=== PATIENT | female | born 1940 | race Caucasian/White ===

== ENCOUNTER 2017-03-06 15:04 | Emergency (ER) | payer MEDICARE, OTHER ==
[2017-03-06] MEDS ORDERED: Zofran 4 MG/2 ML VIAL IV ONE (15:26)
[2017-03-06] MEDS ORDERED: PROTONIX 40 MG IV IV ONE ×2 (15:26→15:35)
[2017-03-06] MEDS ORDERED: Sodium Chloride 0.9% 1000 ML 1,000 ML IV SCH (15:30)
[2017-03-06] MEDS ORDERED: Sodium Chloride 0.9% 1000 ML 1,000 ML ONE (15:35)
[2017-03-06] MEDS ORDERED: Zofran 4 MG/2 ML VIAL ONE (15:35)
[2017-03-06 15:57] LABS: BASOPHIL % 0.4 % (0.0-0.4); Eosinophil % 1.5 % (0.00-5.0); Granulocytes % 79.2 % (36.0-66.0); Lymphocytes % 12.2 % (24.0-44.0); Mean Cell Volume 84.4 fl (78-100); Mean Corpuscular Hemoglobin 28.9 pg (26-32); Mean Platelet Volume 11.9 fl (6-9.5); Monocytes % 6.7 % (0.0-12.0); Platelet Count 199 K/mm3 (150-450); Red Blood Count 5.26 M/mm3 (4.1-5.4); Red Cell Distribution Width 13.3 % (11.5-14.0); White Blood Count 7.3 K/mm3 (4.0-10.5)
[2017-03-06 16:00] LABS: ANION GAP 12.9 MEQ/L (5-15); BLOOD UREA NITROGEN 22 mg/dL (9-20); CHLORIDE 105 mEq/L (98-107); Carbon Dioxide 26.6 mEq/L (21-32); Glucose 144 MG/DL (70-110); LIPASE 115 U/L (73-393); Potassium 3.9 mEq/L (3.5-5.1); SODIUM 141 mEq/L (136-145)
[2017-03-06 18:01] VITALS: BP 136/63; PULSE 88; O2SAT 96
--- NOTE | 2017-03-06 18:22 | ERPHSYRPT ---
- History of Present Illness Time Seen by Provider: 03/06/17 15:15 Source: patient Exam Limitations: clinical condition Patient Subjective Stated Complaint: PT BROUGHT TO ED PER EMS FROM HOME-REPORTS PT HAD SUDDEN ONSET OF VOMITING X 1 AT 1330-DENIES PAIN-REPORTS [place] DENIES DIARRHEA Triage Nursing Assessment: PT PALE WARM ET [id number] EASY ET NONLABORED- ABD NONTENDER TO PALP Physician History: PATIENT WITH HISTORY OF TYPE 2 DIABETES COMPLAINS OF FREQUENT EPISODES OF EMESIS X 2. DENIES FEVER, ABDOMINAL PAIN OR DIARRHEA. Timing/Duration: today Severity: mild Modifying Factors: Improves With: nothing Associated Symptoms: denies symptoms Allergies/Adverse Reactions: No Known Drug Allergies Allergy (Verified 03/06/17 15:08) Home Medications: Aspirin EC 81 mg [Ecotrin 81 mg] 81 mg PO DAILY 03/15/13 [History] Calcium Carbonate [Calcium] 500 mg PO BID 03/15/13 [History] Clopidogrel Bisulfate 75 mg [PLAVIX 75 MG Tablet] 75 mg PO DAILY 03/15/13 [History] Ergocalciferol (Vitamin D2) [Vitamin D] 50,000 unit PO 2XW 03/15/13 [History] Insulin Detemir [Levemir] 70 unit SQ BID 03/15/13 [History] Liraglutide [Victoza 2-Lino] 1.8 mg SQ DAILY 03/15/13 [History] [place]-3 Fatty Acids/Fish Oil [Fish Oil 1,000 mg Capsule] 1,000 mg PO DAILY 03/15/13 [History] Omeprazole Magnesium [Prilosec Otc] 20 mg PO DAILY 03/15/13 [History] Quinapril HCl [Accupril] 40 mg PO DAILY 03/15/13 [History] Hx Tetanus, Diphtheria Vaccination/Date Given: No Hx Influenza Vaccination/Date Given: Yes Hx Pneumococcal Vaccination/Date Given: Yes Immunizations Up to Date: Yes - Review of Systems Constitutional: No Fever, No Chills Eyes: No Symptoms Ears, Nose, & Throat: No Symptoms Respiratory: No Cough, No Dyspnea Cardiac: No Chest Pain, No Edema, No Syncope Abdominal/Gastrointestinal: Nausea, Vomiting, No Abdominal Pain, No Diarrhea Genitourinary Symptoms: No Symptoms, No Dysuria Musculoskeletal: No Symptoms, No Back Pain, No Neck Pain Skin: No Symptoms, No Rash Neurological: No Dizziness, No Focal Weakness, No Sensory Changes Psychological: No Symptoms Endocrine: No Symptoms All Other Systems: Reviewed and Negative - Past Medical History Pertinent Past Medical History: Yes Neurological History: TIA ENT History: Cataracts Cardiac History: Hypertension Endocrine Medical History: Diabetes Type II Musculoskeletal History: Arthritis GI Medical History: Colorectal Cancer, Polyps History: No Pertinent History Psycho-Social History: No Pertinent History Female Reproductive Disorders: No Pertinent History - Past Surgical History Past Surgical History: Yes Gastrointestinal: Colon Resection - Social History Smoking Status: Never smoker Exposure to second hand smoke: Yes Drug Use: none Patient Lives Alone: Yes - Female History Hx Now: No - Nursing Vital Signs Nursing Vital Signs: Initial Vital Signs Temperature 98.7 F Temperature Source Oral Pulse Rate 88 Respiratory Rate 20 Blood Pressure [Left Arm] 136/63 Pain Intensity 0 - Physical Exam General Appearance: no apparent distress, alert Eye Exam: PERRL/EOMI, eyes nml inspection Ears, Nose, Throat Exam: normal ENT inspection, TMs normal, pharynx normal, moist mucous membranes Neck Exam: normal inspection, non-tender, supple, full range of motion Respiratory Exam: normal breath sounds, lungs clear, No respiratory distress Cardiovascular Exam: regular rate/rhythm, normal heart sounds, normal peripheral pulses Gastrointestinal/Abdomen Exam: soft, normal bowel sounds, No tenderness, No mass Back Exam: normal inspection, normal range of motion, No CVA tenderness, No vertebral tenderness Extremity Exam: normal inspection, normal range of motion, pelvis stable Neurologic Exam: alert, oriented x 3, cooperative, normal mood/affect, nml cerebellar function, nml station & gait, sensation nml, No motor deficits Skin Exam: normal color, warm, dry, No rash Lymphatic Exam: No adenopathy SpO2 Interpretation: normal SpO2: 96 Oxygen Delivery: Room Air Ordered Tests: Active Orders 24 hr Category Date Time Status EKG-ER Only STAT Care 03/06/17 15:26 Active IV Insertion STAT Care 03/06/17 15:26 Active AMYLASE Stat Lab 03/06/17 15:10 Completed BMP Stat Lab 03/06/17 15:10 Completed CBC W DIFF Stat Lab 03/06/17 15:10 Completed LIPASE Stat Lab 03/06/17 15:10 Completed Medication Summary Generic Name Dose Route Start Last Admin Trade Name Freq PRN Reason Stop Dose Admin Sodium Chloride 1,000 mls @ 200 mls/hr 03/06/17 15:30 03/06/17 15:40 Sodium Chloride 0.9% 1000 Ml IV 04/05/17 15:29 200 mls/hr .Q5H [place] Administration Discontinued Medications Generic Name Dose Route Start Last Admin Trade Name Freq PRN Reason Stop Dose Admin Ondansetron HCl 4 mg 03/06/17 15:26 03/06/17 15:40 Zofran 4 Mg/2 Ml Vial IV 03/06/17 15:27 4 mg STAT ONE Administration Ondansetron HCl Confirm 03/06/17 15:35 Zofran 4 Mg/2 Ml Vial Administered 03/06/17 15:36 Dose 4 mg .ROUTE .STK-MED ONE Pantoprazole Sodium 40 mg 03/06/17 15:26 03/06/17 15:40 Protonix 40 Mg Iv IV 03/06/17 15:27 40 mg STAT ONE Administration Pantoprazole Sodium Confirm 03/06/17 15:35 Protonix 40 Mg Iv Administered 03/06/17 15:36 Dose 40 mg IV .STK-MED ONE Lab/Rad Data: Laboratory Result Diagrams 03/06/17 15:10 03/06/17 15:10 Laboratory Results 03/06/17 03/06/17 Range/Units 15:10 15:10 WBC 7.3 (4.0-10.5) K/mm3 RBC 5.26 (4.1-5.4) M/mm3 Hgb 15.2 (12.0-16.0) gm/dl Hct 44.4 (35-47) % MCV 84.4 (78-100) fl MCH 28.9 (26-32) pg MCHC 34.2 (32-36) g/dl RDW 13.3 (11.5-14.0) % Plt Count 199 (150-450) K/mm3 MPV 11.9 H (6-9.5) fl Gran % 79.2 H (36.0-66.0) % Lymphocytes % 12.2 L (24.0-44.0) % Monocytes % 6.7 (0.0-12.0) % Eosinophils % 1.5 (0.00-5.0) % Basophils % 0.4 (0.0-0.4) % Basophils # 0.03 (0-0.4) Sodium 141 (136-145) mEq/L Potassium 3.9 (3.5-5.1) mEq/L Chloride 105 (98-107) mEq/L Carbon Dioxide 26.6 (21-32) mEq/L Anion Gap 12.9 (5-15) MEQ/L BUN 22 H (9-20) mg/dL Creatinine 0.95 (0.55-1.30) mg/dl Estimated GFR > 60 ML/MIN Glucose 144 H (70-110) MG/DL Calcium 9.9 (8.5-10.1) mg/dL Amylase 78 (25-115) U/L Lipase 115 (73-393) U/L - Progress Counseled pt/family regarding: diagnosis, need for follow-up - Departure Time of Disposition: 18:35 Departure Disposition: Home Clinical Impression: ACUTE EMESIS Condition: Stable Critical Care Time: No Referrals: ELVIS SALINAS MD [Primary Care Provider] - Additional Instructions: ZOFRAN 4MG EVERY 4-6 HOURS NEEDED FOR NAUSEA OR EMESIS. CONSULT YOUR FAMILY PHYSICIAN FOR EVALUATION IN 1 WEEK. Prescriptions: Ondansetron [Zofran Odt] 4 mg PO Q4-6HPRN PRN #6 tab.rapdis PRN Reason: Nausea
== END 2017-03-06 18:47 | disposition home or self-care (01) ==
LOC: ED 15:04
DX: R11.10 Vomiting, unspecified (principal); E11.9 Type 2 diabetes mellitus without complications; R11.2 Nausea with vomiting, unspecified
CPT/HCPCS: 36415; 80048; 82150; 83690; 85025; 93005; 96360; 96361; 96374; 96375; 99284; J2405

== ENCOUNTER 2017-08-25 10:13 | Emergency (ER) | payer MEDICARE, OTHER ==
[2017-08-25] MEDS ORDERED: NORCO 5/325 MG PO ONE (10:56)
--- NOTE | 2017-08-25 10:59 | ERPHSYRPT ---
- History of Present Illness Time Seen by Provider: 08/25/17 10:53 Source: patient Patient Subjective Stated Complaint: right shoulder pain since . got pneumonia shot sunday. denies any injury Triage Nursing Assessment: right shoulder tender to touch. has small red area where she got her pneumonia shot right upper arm. unable to lift right arm. good radial pulse and good cap refill. arm warm, normal color. Physician History: CC: right shoulder pain Hx: 77 y/o patient with right shoulder pain for a few days. Worse when she tries to move it. No fall or injury. No fever or chills. No hx of gout. Drove herself here. Takes plavix. She has insulin pump. Pain is severe. Extremities Pain Location: shoulder: right Allergies/Adverse Reactions: aspirin Adverse Reaction (Verified 08/25/17 10:53) Home Medications: Calcium Carbonate [Calcium] 500 mg PO BID 03/15/13 [History] Clopidogrel Bisulfate 75 mg [PLAVIX 75 MG Tablet] 75 mg PO DAILY 03/15/13 [History] Ergocalciferol (Vitamin D2) [Vitamin D] 50,000 unit PO 2XW 03/15/13 [History] Insulin Detemir [Levemir] 70 unit SQ BID 03/15/13 [History] Liraglutide [Victoza 2-Lino] 1.8 mg SQ DAILY 03/15/13 [History] [place]-3 Fatty Acids/Fish Oil [Fish Oil 1,000 mg Capsule] 1,000 mg PO DAILY 03/15/13 [History] Quinapril HCl [Accupril] 40 mg PO DAILY 03/15/13 [History] Hx Tetanus, Diphtheria Vaccination/Date Given: No Hx Influenza Vaccination/Date Given: Yes Hx Pneumococcal Vaccination/Date Given: Yes - Review of Systems Constitutional: No Fever, No Chills Respiratory: No Cough, No Dyspnea Cardiac: No Chest Pain Abdominal/Gastrointestinal: No Abdominal Pain, No Nausea, No Vomiting Musculoskeletal: Joint Pain (right shoulder), No Back Pain, No Neck Pain, No Injury Skin: No Rash Neurological: No Focal Weakness, No Parasthesia All Other Systems: Reviewed and Negative - Past Medical History Pertinent Past Medical History: Yes Neurological History: TIA ENT History: Cataracts Cardiac History: Hypertension Endocrine Medical History: Diabetes Type II Musculoskeletal History: Arthritis GI Medical History: Colorectal Cancer, Polyps History: No Pertinent History Psycho-Social History: No Pertinent History Female Reproductive Disorders: No Pertinent History - Past Surgical History Past Surgical History: Yes Gastrointestinal: Colon Resection - Social History Smoking Status: Never smoker Exposure to second hand smoke: No Drug Use: none Patient Lives Alone: Yes - Female History Hx Now: No - Nursing Vital Signs Nursing Vital Signs: Initial Vital Signs Temperature 98 F 08/25/17 10:47 Pulse Rate 87 08/25/17 10:47 Respiratory Rate 16 08/25/17 10:47 Blood Pressure 152/61 08/25/17 10:47 O2 Sat by Pulse Oximetry 97 08/25/17 10:47 Pain Scale Pain Intensity 6 - Physical Exam General Appearance: alert Eyes, Ears, Nose, Throat Exam: normal ENT inspection, moist mucous membranes Neck Exam: non-tender, supple Cardiovascular/Respiratory Exam: normal breath sounds, regular rate/rhythm Abdominal Exam: non-tender, soft Back Exam: normal inspection, No vertebral tenderness Shoulder Exam: normal inspection, limited ROM (severe tenderness, no redness or warmth) Elbow/Forearm Exam: normal inspection, non-tender, no evidence of injury Wrist Exam: normal inspection, non-tender, no evidence of injury Hand Exam: normal inspection, non-tender, no evidence of injury Mental Status Exam: alert, oriented x 3, cooperative Skin Exam: warm, dry, No rash SpO2 Interpretation: normal SpO2: 97 Oxygen Delivery: Room Air - Course Nursing assessment & vital signs reviewed: Yes - Radiology Exams right shoulder X-ray Interpretation: Interpreted by me (JACKIE), No Fracture, No Subluxation Ordered Tests: Active Orders 24 hr Category Date Time Status SHOULDER Stat Exams 08/25/17 10:56 Taken BMP Stat Lab 08/25/17 11:15 Completed CBC W DIFF Stat Lab 08/25/17 11:15 Completed Erythrocyte Sedimentation Rate Stat Lab 08/25/17 11:15 Completed Uric Acid Stat Lab 08/25/17 11:15 Completed Medication Summary Discontinued Medications Generic Name Dose Route Start Last Admin Trade Name Freq PRN Reason Stop Dose Admin Hydrocodone Bitart/Acetaminophen 1 tab 08/25/17 10:56 08/25/17 11:37 [place] 5/325 Mg PO 08/25/17 10:57 1 tab STAT ONE Administration Hydrocodone Bitart/Acetaminophen Confirm 08/25/17 11:00 [place] 5/325 Mg Administered 08/25/17 11:01 Dose 1 tab .ROUTE .STK-MED ONE Lab/Rad Data: Laboratory Result Diagrams 08/25/17 11:15 08/25/17 11:15 Laboratory Results 08/25/17 08/25/17 Range/Units 11:15 11:15 WBC 13.5 H (4.0-10.5) K/mm3 RBC 4.90 (4.1-5.4) M/mm3 Hgb 14.5 (12.0-16.0) gm/dl Hct 41.7 (35-47) % MCV 85.1 (78-100) fl MCH 29.6 (26-32) pg MCHC 34.8 (32-36) g/dl RDW 12.8 (11.5-14.0) % Plt Count 212 (150-450) K/mm3 MPV 11.1 H (6-9.5) fl Gran % 81.7 H (36.0-66.0) % Lymphocytes % 9.1 L (24.0-44.0) % Monocytes % 8.7 (0.0-12.0) % Eosinophils % 0.4 (0.00-5.0) % Basophils % 0.1 (0.0-0.4) % Basophils # 0.02 (0-0.4) ESR 18 (0-20) mm/hr Sodium 140 (136-145) mEq/L Potassium 3.8 (3.5-5.1) mEq/L Chloride 102 (98-107) mEq/L Carbon Dioxide 26.3 (21-32) mEq/L Anion Gap 15.4 H (5-15) MEQ/L BUN 17 (9-20) mg/dL Creatinine 0.98 (0.55-1.30) mg/dl Estimated GFR 59 ML/MIN Glucose 191 H (70-110) MG/DL Uric Acid 5.4 (2.6-6.0) mg/dL Calcium 9.5 (8.5-10.1) mg/dL - Progress Progress Note: 08/25/17 12:01 No fever. She has some swelling of the right shoulder. ESR and uric ok. She had trouble filling her insulin pump this AM as she is not able to use the right shoulder. The pain in the joint started a few days ago. She has family in [place] and another disabled son. She has never had HHC. She may need steroid injection in shoulder. [place] given here after she found a ride for home. Advised partial sling, frequent ROM exercises as she already is at risk for frozen shoulder, norco, watch sugar. She was advised no driving and she will need some assistance for care at home and close follow up. 08/25/17 12:06 Discharge planning consulted in attempt to arrange help at home. Counseled pt/family regarding: lab results, diagnosis, need for follow-up, rad results - Departure Time of Disposition: 12:03 Departure Disposition: Home Clinical Impression: Arthritis of right shoulder region Condition: Stable Critical Care Time: No Referrals: ELVIS SALINAS MD [Primary Care Provider] - Instructions: Shoulder Pain, Use a Sling Additional Instructions: Sling when needed. Frequent range of motion exercises for shoulder. Rx norco for pain- no driving. Watch sugar. You should follow up with Dr Salinas Sunday. Return for fever, redness or concerns. Prescriptions: Hydrocodone Bit/Acetaminophen [[place] 5-325 Tablet] 1 each PO Q6H PRN PRN #15 tablet PRN Reason: Pain
[2017-08-25] MEDS ORDERED: NORCO 5/325 MG ONE (11:00)
[2017-08-25 11:21] LABS: BASOPHIL % 0.1 % (0.0-0.4); Eosinophil % 0.4 % (0.00-5.0); Granulocytes % 81.7 % (36.0-66.0); Lymphocytes % 9.1 % (24.0-44.0); Mean Cell Volume 85.1 fl (78-100); Mean Corpuscular Hemoglobin 29.6 pg (26-32); Mean Platelet Volume 11.1 fl (6-9.5); Monocytes % 8.7 % (0.0-12.0); Platelet Count 212 K/mm3 (150-450); Red Cell Distribution Width 12.8 % (11.5-14.0); White Blood Count 13.5 K/mm3 (4.0-10.5)
[2017-08-25 11:37] LABS: Erythrocyte Sedimentation Rate 18 mm/hr (0-20)
[2017-08-25 11:39] LABS: ANION GAP 15.4 MEQ/L (5-15); Carbon Dioxide 26.3 mEq/L (21-32); Potassium 3.8 mEq/L (3.5-5.1)
[2017-08-25 13:52] VITALS: BP 143/77; PULSE 70; O2SAT 96
--- NOTE | 2017-08-25 19:16 | XRAY ---
Indication: Throbbing pain. No known injury. Comparison: None 3 views of the right shoulder demonstrates mild osteopenia, moderate AC degenerative arthropathy, multilevel spinal degenerative changes, and tiny ossification adjacent to the humeral head either degenerative versus old injury. No other bony, articular, or soft tissue abnormalities.
== END 2017-08-25 13:15 | disposition home or self-care (01) ==
LOC: ED 10:13
DX: M13.811 Other specified arthritis, right shoulder (principal); M25.511 Pain in right shoulder; Z79.4 Long term (current) use of insulin; Z96.41 Presence of insulin pump (external) (internal); Z79.899 Other long term (current) drug therapy; I10 Essential (primary) hypertension; E11.9 Type 2 diabetes mellitus without complications
CPT/HCPCS: 36415; 73030; 80048; 84550; 85025; 85652; 99283; A9270-GY

== ENCOUNTER 2020-08-23 09:00 | Day surgery (SDC) | payer MEDICARE, OTHER ==
--- NOTE | 2020-08-23 08:04 | HP ---
DATE OF SURGERY: 08/23/2020 HISTORY OF PRESENT ILLNESS: The patient is a 80 year old with some bright red rectal bleeding. The appeals examiner felt it was related to hemorrhoids. She had a colonoscopy during the past year per gastroenterology. She had colon cancer resection back in 2004. PAST MEDICAL HISTORY: Coronary artery disease. 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 Hypertension. Hyperlipidemia. Diabetes. 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 PAST SURGICAL HISTORY: Stents in the past. TAVR in the past. Colonoscopy. MEDICATIONS: Rybelsus, Trulicity, atorvastatin for hyperlipidemia, quinapril, Plavix, fenofibrate, esomeprazole, vitamin D2, metoprolol, aspirin, NovoLog, NitroStat PRN. ALLERGIES: SHE SAID SENSITIVE TO ASPIRIN ALTHOUGH SHE IS ACTUALLY TAKING ASPIRIN. ADHESIVE TAPE. FAMILY HISTORY: Diabetes, heart disease. SOCIAL HISTORY: She denies smoking. REVIEW OF SYSTEMS: Fourteen systems reviewed pertinent for as noted above. She received cardiac clearance by Dr. Hollins. No chest pain or palpitations currently. PHYSICAL EXAMINATION: GENERAL: No acute distress. HEENT: Sclerae nonicteric. NECK: No JVD. CHEST: Equal excursion, nonlabored breathing. CVS: Regular rate and rhythm. ABDOMEN: Soft. No peritoneal signs. EXTREMITIES: No significant edema. NEURO: Alert, oriented, moving extremities symmetrically. No gross motor deficits noted. RECTAL: She does have some internal and external hemorrhoids. PSYCH: Appropriate mood and affect. IMPRESSION: She has some rectal bleeding. Drapery Rod Assembler, Dr. Godinez, questioned whether this was related to some hemorrhoid issues. She was discussed the options regarding to hemorrhoids. As she had a colonoscopy this past year she does not automatically need another colonoscopy. She was discussed options of consideration of excisional hemorrhoidectomy versus trial of hemorrhoid banding. After a long discussion of risks and benefits the patient prefers trial of internal hemorhoidal banding. General risk of bleeding or infection, risk of sphincter irritability or dysfunction, small risk of pain or cramping, remote risk of major infection around the rectum which is far less than the risk of hemorrhoidectomy possibly requiring other procedures. She also understands general risk of aches, pains, recurrent bleeding, possible progression of hemorrhoidal disease possibly requiring other procedures either banding or excisional therapy down the road or other treatments. She understands and agrees to the planned procedure, will proceed with exam under sedation possible internal hemorrhoid banding as an outpatient.
[~2020-08-23 09:00] MED LIST: AMOXIL 500 MG PO SCH
[2020-08-23] MEDS ORDERED: Lactated Ringers 1,000 ML IV SCH (09:30)
[2020-08-23 09:46] LABS: ALBUMIN 4.4 g/dL (3.5-5.0); ALKALINE PHOSPHATASE 92 U/L (38-126); ANION GAP 12.2 MEQ/L (5-15); BLOOD UREA NITROGEN 12 mg/dL (7-17); CHLORIDE 105 mmol/L (98-107); Calcium 10.1 mg/dL (8.4-10.2); Carbon Dioxide 24 mmol/L (22-30); Creatinine 1 0.82 mg/dL (0.52-1.04); EST GLOMERULAR FILTRATION RATE > 60.0 ML/MIN; Glucose 131 mg/dL (74-106); Potassium 4.4 mmol/L (3.5-5.1); SGOT/AST 30 U/L (14-36); SGPT/ALT 18 U/L (0-35); SODIUM 136 mmol/L (137-145); Total Protein 7.4 g/dL (6.3-8.2)
[2020-08-23] MEDS ORDERED: DIPRIVAN 200 MG/20 ML IV ONE (11:04)
[2020-08-23 12:36] VITALS: O2SAT 99
[2020-08-23 12:39] VITALS: BP 151/72; PULSE 66
--- NOTE | 2020-08-25 08:17 | OP ---
SURGERY DATE/TIME: 08/23/2020 1103 PREOPERATIVE DIAGNOSIS: Bleeding internal hemorrhoids. POSTOPERATIVE DIAGNOSIS: Bleeding internal hemorrhoids. PROCEDURES: 1) Exam under sedation. 2) Internal hemorrhoid banding x3 columns. SURGEON: Dr. Juan Carlos Marti. ANESTHESIA: MAC. ESTIMATED BLOOD LOSS: Minimal. INDICATIONS: As noted above. Risks and benefits explained in detail and not limited to and consent obtained. DESCRIPTION OF PROCEDURE AND FINDINGS: The patient is taken to the endoscopy room. MAC anesthesia introduced. After official time out and no disagreement with planned procedure, in lateral position under MAC anesthesia half-andrea retractor carefully inserted. She did have some kind of gynecologic prolapse. She had these moderate sized grade II to III internal hemorrhoids that seem to be causing her rectal bleeding issues at this point. She had prior endoscopy by a barrel cooper earlier this year that did not show any other etiology. Half-andrea retractor carefully inserted. First the left lateral moderate hemorrhoid complex carefully with suction peoplesoft analyst at the top edge hopefully acquiring a good tuft of tissue noted in the band prior, good position. This is repeated in the right posterior position. This is a little bit smaller complex but felt it warranted banding. A suction peoplesoft analyst carefully fired with good tuft of tissue and the band placed at the top edge of the hemorrhoid hopefully acquiring bleeding arterioles. This was again repeated in the right anterior position with a good tuft of tissue mucosa of internal hemorrhoid hopefully acquiring the bleeding arteriole. Suction band fired and a good tuft of tissue noted. It appears to have adequate hemostasis at this point. There were no immediate complications. Findings discussed with the family or friend out in the waiting area.
== END 2020-08-23 12:46 | disposition home or self-care (01) ==
LOC: SDC 09:00
PROVIDERS: ATTEND Surgery
DX: K64.8 Other hemorrhoids (principal); Z85.038 Personal history of other malignant neoplasm of large intestine; I10 Essential (primary) hypertension; E11.9 Type 2 diabetes mellitus without complications; Z86.79 Personal history of other diseases of the circulatory system; Z79.899 Other long term (current) drug therapy; Z79.01 Long term (current) use of anticoagulants
CPT/HCPCS: 36415; 80053; 82947; J2704; A9270-GY

== ENCOUNTER 2022-06-09 13:11 | Observation (INO) | payer MEDICARE ==
[2022-06-09 15:58] LABS: INFLUENZA A NEGATIVE (NEGATIVE); INFLUENZA B NEGATIVE (NEGATIVE); RESPIRATORY SYNCTIAL VIRUS NEGATIVE (Negative); SARS-CoV-2 Xpert Express NEGATIVE (NEGATIVE)
[2022-06-09] MEDS: Sodium Chloride 0.9% 1000 ML 1,000 ML IV SCH (16:10)
[2022-06-09 17:14] LABS: Absolute Neutrophil Ct (ANC) 4.18 x10^3/uL (1.4-6.9); Basophil (Absolute #) 0.04 x10^3/uL (0-0.4); Eosinophil % 2.2 % (0.00-5.0); Eosinophil (Absolute #) 0.15 x10^3/uL (0-0.5); Hematocrit 41.6 % (35-47); Hemoglobin 13.7 g/dL (12.0-16.0); Lymphocyte (Absolute #) 1.72 x10^3/uL (1.0-4.6); Lymphocytes % 25.7 % (24.0-44.0); Mean Corpuscular Hemoglobin 28.3 pg (26-32); Mean Corpuscular Hgb Concent. 32.9 g/dL (32-36); Mean Platelet Volume 11.5 fL (7.5-11.0); Neutrophil % 62.5 % (36.0-66.0); Platelet Count 213 x10^3/uL (150-450); Red Blood Count 4.84 x10^6/uL (4.1-5.4); Red Cell Distribution Width 13.7 % (11.5-14.0); White Blood Count 6.7 x10^3/uL (4.0-10.5)
[2022-06-09 17:29] LABS: ALBUMIN 4.4 g/dL (3.5-5.0); ANION GAP 13.5 MEQ/L (5-15); BILIRUBIN,TOTAL 0.5 mg/dL (0.2-1.3); Calcium 9.4 mg/dL (8.4-10.2); Creatinine 1 1.2 mg/dL (0.52-1.04); EST GLOMERULAR FILTRATION RATE 45.9 ML/MIN; Potassium 4.4 mmol/L (3.5-5.1)
--- NOTE | 2022-06-09 22:13 | XRAY ---
Indication: Dizziness. Comparison: August 29, 2010 PA/lateral chest again demonstrates COPD without focal infiltrate, consolidation, or large effusion. Heart not enlarged with interval cardiac valve replacement surgery. Bony thorax intact again with osteopenia and degenerative changes. Impression: Continued nonacute chest with chronic features.
[2022-06-10] MEDS: Sodium Chloride 0.9% 1000 ML 1,000 ML IV SCH (02:26)
[2022-06-10] MEDS ORDERED: NON-FORMULARY ITEM (Cholecalciferol (Vitamin D3) [Vitamin D3] 1,250 MCG Capsule) PO SCH (08:45)
[2022-06-10] MEDS ORDERED: NON-FORMULARY ITEM (Dulaglutide [Trulicity] 0.75 MG/0.5 ML Pen.Injctr) SQ SCH (08:45)
[2022-06-10] MEDS: Apresoline 25 MG TABLET PO SCH ×2 (09:23→23:40)
[2022-06-10] MEDS: Lopressor 25MG Tab PO SCH ×2 (09:24→21:52)
[2022-06-10] MEDS: PLAVIX Tablet PO SCH (09:24)
[2022-06-10] MEDS: Protonix 40MG Tablet PO SCH (09:25)
[2022-06-10] MEDS: Accupril 10MG Tablet PO SCH (09:26)
[2022-06-10] MEDS ORDERED: MEDICATION INTERVENTION MC SCH ×2 (10:00)
[2022-06-10] MEDS ORDERED: NON-FORMULARY ITEM (Hydralazine Hcl [Hydralazine Hcl] 50 MG Tablet) PO SCH (10:00)
[2022-06-10] MEDS ORDERED: QUINAPRIL HCL 40 MG PO SCH (10:00)
[2022-06-10] MEDS ORDERED: SEMAGLUTIDE 7 MG PO SCH (10:00)
--- NOTE | 2022-06-10 13:46 | PCM.HP ---
History of Present Illness - Chief Complaint Chief Complaint: dizziness, low blood pressure for 1-2 days History of Present Illness: is a 82 year old female.was seen in office c/o sudden onset of dizziness since AM with low blood pressure. She is feeling weak. She staes that she has some confusion about how to take her blood pressure medicine. She denies any chest pain Shortness of breath. - Review of Systems Constitutional: Weakness, No Fever, No Chills Eyes: No Symptoms Ears, Nose, & Throat: No Symptoms Respiratory: No Cough, No Short Of Breath Cardiac: Syncope, No Chest Pain, No Edema Abdominal/Gastrointestinal: No Abdominal Pain, No Nausea, No Vomiting, No Diarrhea Genitourinary Symptoms: No Dysuria Musculoskeletal: No Back Pain, No Neck Pain Skin: No Rash Neurological: No Dizziness, No Focal Weakness, No Sensory Changes Psychological: No Symptoms Endocrine: No Symptoms Hematologic/Lymphatic: No Symptoms Immunological/Allergic: No Symptoms Medications & Allergies Home Medications: Home Medication List Atorvastatin Calcium [Lipitor] 40 mg PO QHS 08/11/20 [History Confirmed 06/09/22] Metoprolol Tartrate 25 mg [Lopressor 25MG Tab] 25 mg PO BID 08/11/20 [History Confirmed 06/09/22] Quinapril HCl [Accupril] 40 mg PO DAILY 08/11/20 [History Confirmed 06/09/22] Semaglutide [Rybelsus] 7 mg PO DAILY 08/11/20 [History Confirmed 06/09/22] Clopidogrel Bisulfate [PLAVIX Tablet] 75 mg PO DAILY #0 08/23/20 [Rx Confirmed 06/09/22] Cholecalciferol (Vitamin D3) [Vitamin D3] 1,250 mcg PO WEEKLY 06/09/22 [History Confirmed 06/09/22] Dulaglutide [Trulicity] 1.5 mg SQ WEEKLY 06/09/22 [History Confirmed 06/09/22] Hydralazine HCl 50 mg PO BID 06/09/22 [History Confirmed 06/09/22] PANTOPRAZOLE 40 mg Tablet [Protonix 40MG Tablet] 40 mg PO DAILY 06/09/22 [History Confirmed 06/09/22] Allergies/Adverse Reactions: Allergies Allergy/AdvReac Type Severity Reaction Status Date / Time aspirin AdvReac Intermediate Stomach Verified 06/09/22 15:05 Pain adhesive tape AdvReac Mild Verified 08/23/20 09:22 - Past Medical History Past Medical History: Yes Neurological History: No Pertinent History ENT History: Cataracts Cardiac History: Coronary Artery Disease, Hypertension, Other Respiratory History: Other Endocrine Medical History: Diabetes Type II, Other Musculoskelatal History: Osteoarthritis GI Medical History: Colorectal Cancer, Polyps History: No Pertinent History Pyscho-Social History: No Pertinent History Reproductive Disorders: No Pertinent History Comment: Notes she is going to have to have a heart valve replaced. Thyroid nodules removed. - Female History Are you now?: No - Past Surgical History Past Surgical History: Yes Neuro Surgical History: No Pertinent History Cardiac History: Cardiac Catheterization, Cardiac Stent, Valve Replacement Respiratory Surgery: No Pertinent History GI Surgical History: Colon Resection Genitourinary Surgical Hx: No Pertinent History Musculskeletal Surgical Hx: No Pertinent History Female Surgical History: No Pertinent History - Social History Smoking Status: Never smoker Exposure to second hand smoke: No Alcohol: None Drug Use: none - Physical Exam Vital Signs: Vital Signs - 24 hr Temp Pulse Resp BP Pulse Ox 06/10/22 12:00 97.5 F 77 19 161/77 96 06/10/22 08:00 97.5 F 68 21 163/70 96 06/10/22 03:41 96.8 F 60 18 140/65 95 06/09/22 23:47 98.1 F 68 18 149/66 95 06/09/22 20:00 97.1 F 70 17 140/64 96 06/09/22 15:32 97.7 F 79 21 112/53 95 General Appearance: no apparent distress, alert Neurologic Exam: alert, oriented x 3, cooperative, normal mood/affect, nml cerebellar function, nml station & gait, sensation nml, No motor deficits Eye Exam: PERRL/EOMI, eyes nml inspection Ears, Nose, Throat Exam: normal ENT inspection, TMs normal, pharynx normal, moist mucous membranes Neck Exam: normal inspection, non-tender, supple, full range of motion Respiratory Exam: normal breath sounds, lungs clear, No respiratory distress Cardiovascular Exam: regular rate/rhythm, normal heart sounds, normal peripheral pulses Gastrointestinal/Abdomen Exam: soft, normal bowel sounds, No tenderness, No mass Back Exam: normal inspection, normal range of motion, No CVA tenderness, No vertebral tenderness Extremity Exam: normal inspection, normal range of motion, pelvis stable Skin Exam: normal color, warm, dry, No rash Lymphatic Exam: No adenopathy Results - Labs Lab/Micro Results: Lab Results-Last 24 Hours 06/09/22 06/09/22 06/09/22 Range/Units 15:01 15:40 15:40 WBC 6.7 (4.0-10.5) x10^3/uL RBC 4.84 (4.1-5.4) x10^6/uL Hgb 13.7 (12.0-16.0) g/dL Hct 41.6 (35-47) % MCV 86.0 (78-100) fL MCH 28.3 (26-32) pg MCHC 32.9 (32-36) g/dL RDW 13.7 (11.5-14.0) % Plt Count 213 (150-450) x10^3/uL MPV 11.5 H (7.5-11.0) fL Gran % 62.5 (36.0-66.0) % Immature Gran % (Auto) 0.0 (0.00-0.4) % Nucleat RBC Rel Count 0.0 (0.00-0.1) % Eos # (Auto) 0.15 (0-0.5) x10^3/uL Immature Gran # (Auto) 0.00 (0.00-0.03) x10^3u/L Absolute Lymphs (auto) 1.72 (1.0-4.6) x10^3/uL Absolute Monos (auto) 0.60 (0.0-1.3) x10^3/uL Absolute Nucleated RBC 0.00 (0.00-0.01) x10^3u/L Lymphocytes % 25.7 (24.0-44.0) % Monocytes % 9.0 (0.0-12.0) % Eosinophils % 2.2 (0.00-5.0) % Basophils % 0.6 (0.0-0.4) % Absolute Granulocytes 4.18 (1.4-6.9) x10^3/uL Basophils # 0.04 (0-0.4) x10^3/uL Sodium 138 (137-145) mmol/L Potassium 4.4 (3.5-5.1) mmol/L Chloride 105 (98-107) mmol/L Carbon Dioxide 24 (22-30) mmol/L Anion Gap 13.5 (5-15) MEQ/L BUN 19 H (7-17) mg/dL Creatinine 1.20 H (0.52-1.04) mg/dL Estimated GFR 45.9 ML/MIN Glucose 118 H (74-106) mg/dL POC Glucometer (74 to 106) mg/dL Calcium 9.4 (8.4-10.2) mg/dL Total Bilirubin 0.50 (0.2-1.3) mg/dL AST 33 (14-36) U/L ALT 30 (0-35) U/L Alkaline Phosphatase 95 (38-126) U/L NT-Pro-B Natriuret Pep 727 (0-1800) pg/mL Serum Total Protein 7.0 (6.3-8.2) g/dL Albumin 4.4 (3.5-5.0) g/dL Influenza Type A Ag NEGATIVE (NEGATIVE) Influenza Type B Ag NEGATIVE (NEGATIVE) RSV (PCR) NEGATIVE (Negative) SARS-CoV-2 (PCR) NEGATIVE (NEGATIVE) 06/09/22 06/09/22 06/10/22 Range/Units 17:19 20:45 07:45 WBC (4.0-10.5) x10^3/uL RBC (4.1-5.4) x10^6/uL Hgb (12.0-16.0) g/dL Hct (35-47) % MCV (78-100) fL MCH (26-32) pg MCHC (32-36) g/dL RDW (11.5-14.0) % Plt Count (150-450) x10^3/uL MPV (7.5-11.0) fL Gran % (36.0-66.0) % Immature Gran % (Auto) (0.00-0.4) % Nucleat RBC Rel Count (0.00-0.1) % Eos # (Auto) (0-0.5) x10^3/uL Immature Gran # (Auto) (0.00-0.03) x10^3u/L Absolute Lymphs (auto) (1.0-4.6) x10^3/uL Absolute Monos (auto) (0.0-1.3) x10^3/uL Absolute Nucleated RBC (0.00-0.01) x10^3u/L Lymphocytes % (24.0-44.0) % Monocytes % (0.0-12.0) % Eosinophils % (0.00-5.0) % Basophils % (0.0-0.4) % Absolute Granulocytes (1.4-6.9) x10^3/uL Basophils # (0-0.4) x10^3/uL Sodium (137-145) mmol/L Potassium (3.5-5.1) mmol/L Chloride (98-107) mmol/L Carbon Dioxide (22-30) mmol/L Anion Gap (5-15) MEQ/L BUN (7-17) mg/dL Creatinine (0.52-1.04) mg/dL Estimated GFR ML/MIN Glucose (74-106) mg/dL POC Glucometer 71 L 98 81 (74 to 106) mg/dL Calcium (8.4-10.2) mg/dL Total Bilirubin (0.2-1.3) mg/dL AST (14-36) U/L ALT (0-35) U/L Alkaline Phosphatase (38-126) U/L NT-Pro-B Natriuret Pep (0-1800) pg/mL Serum Total Protein (6.3-8.2) g/dL Albumin (3.5-5.0) g/dL Influenza Type A Ag (NEGATIVE) Influenza Type B Ag (NEGATIVE) RSV (PCR) (Negative) SARS-CoV-2 (PCR) (NEGATIVE) 06/10/22 06/10/22 Range/Units 11:38 11:38 WBC (4.0-10.5) x10^3/uL RBC (4.1-5.4) x10^6/uL Hgb (12.0-16.0) g/dL Hct (35-47) % MCV (78-100) fL MCH (26-32) pg MCHC (32-36) g/dL RDW (11.5-14.0) % Plt Count (150-450) x10^3/uL MPV (7.5-11.0) fL Gran % (36.0-66.0) % Immature Gran % (Auto) (0.00-0.4) % Nucleat RBC Rel Count (0.00-0.1) % Eos # (Auto) (0-0.5) x10^3/uL Immature Gran # (Auto) (0.00-0.03) x10^3u/L Absolute Lymphs (auto) (1.0-4.6) x10^3/uL Absolute Monos (auto) (0.0-1.3) x10^3/uL Absolute Nucleated RBC (0.00-0.01) x10^3u/L Lymphocytes % (24.0-44.0) % Monocytes % (0.0-12.0) % Eosinophils % (0.00-5.0) % Basophils % (0.0-0.4) % Absolute Granulocytes (1.4-6.9) x10^3/uL Basophils # (0-0.4) x10^3/uL Sodium (137-145) mmol/L Potassium (3.5-5.1) mmol/L Chloride (98-107) mmol/L Carbon Dioxide (22-30) mmol/L Anion Gap (5-15) MEQ/L BUN (7-17) mg/dL Creatinine (0.52-1.04) mg/dL Estimated GFR ML/MIN Glucose (74-106) mg/dL POC Glucometer 150 H 150 H (74 to 106) mg/dL Calcium (8.4-10.2) mg/dL Total Bilirubin (0.2-1.3) mg/dL AST (14-36) U/L ALT (0-35) U/L Alkaline Phosphatase (38-126) U/L NT-Pro-B Natriuret Pep (0-1800) pg/mL Serum Total Protein (6.3-8.2) g/dL Albumin (3.5-5.0) g/dL Influenza Type A Ag (NEGATIVE) Influenza Type B Ag (NEGATIVE) RSV (PCR) (Negative) SARS-CoV-2 (PCR) (NEGATIVE) Accuchecks Date 06/09/22 Time 21:00 - Radiology Impressions Radiology Exams & Impressions: Radiology Procedures Category Date Time Status CHEST 2 VIEWS (PA AND LAT) Stat Exams 06/09/22 16:01 Completed Assessment/Plan (1) Sympathotonic orthostatic hypotension Current Visit: Yes Status: Acute Assessment & Plan: Chief Complaint Diagnosis dizziness, low blood pressure for 1-2 days Allergies Allergy/AdvReac Type Severity Reaction Status Date / Time aspirin AdvReac Intermediate Stomach Verified 06/09/22 15:05 Pain adhesive tape AdvReac Mild Verified 08/23/20 09:22 Vital Signs (Last 24 hours) Temp Pulse Resp BP Pulse Ox 06/10/22 12:00 97.5 F 77 19 161/77 96 06/10/22 08:00 97.5 F 68 21 163/70 96 06/10/22 03:41 96.8 F 60 18 140/65 95 06/09/22 23:47 98.1 F 68 18 149/66 95 06/09/22 20:00 97.1 F 70 17 140/64 96 06/09/22 15:32 97.7 F 79 21 112/53 95 Home Medications Medication Instructions Recorded Confirmed Last Taken Type Cholecalciferol (Vitamin D3) 1,250 mcg PO WEEKLY 06/09/22 06/09/22 06/09/22 History [Vitamin D3] Dulaglutide [Trulicity] 1.5 mg SQ WEEKLY 06/09/22 06/09/22 06/06/22 History 1.5mg/0.5mL Hydralazine HCl 50 mg PO BID 06/09/22 06/09/22 06/09/22 History 50 mg PANTOPRAZOLE 40 mg Tablet 40 mg PO DAILY 06/09/22 06/09/22 06/09/22 History [Protonix 40MG Tablet] 40 mg Current Medications Generic Name Dose Route Start Last Admin Trade Name Jayson PRN Reason Stop Dose Admin Cholecalciferol 1,250 unit 06/16/22 10:00 Cholecalciferol (Vitamin D3) 1000 Unit Tablet PO 07/16/22 09:59 WEEKLY [place] Clopidogrel Bisulfate 75 mg 06/10/22 10:00 06/10/22 09:24 Clopidogrel Bisulfate 75 Mg Tablet PO 07/10/22 09:59 75 mg DAILY [place] Administration Hydralazine HCl 50 mg 06/10/22 10:00 06/10/22 09:23 Hydralazine Hcl 25 Mg Tablet PO 07/10/22 09:59 50 mg BID [place] Administration Sodium Chloride 1,000 mls @ 100 mls/hr 06/09/22 15:45 06/10/22 02:26 Sodium Chloride 0.9% 1000 Ml IV 07/09/22 15:44 100 mls/hr .Q10H [place] Administration Metoprolol Tartrate 25 mg 06/10/22 10:00 06/10/22 09:24 Metoprolol Tartrate 25 Mg Tab PO 07/10/22 09:59 25 mg BID [place] Administration Miscellaneous Information 0 each 06/10/22 10:00 Medication Intervention 1 Each Each MC 07/10/22 09:59 .RN TO CHECK WITH PT [place] Miscellaneous Information 0 each 06/10/22 10:00 Medication Intervention 1 Each Each MC 07/10/22 09:59 .RN TO CHECK WITH PATIENT [place] Pantoprazole Sodium 40 mg 06/10/22 10:00 06/10/22 09:25 Protonix (Pantoprazole) 40 Mg Tablet PO 07/10/22 09:59 40 mg DAILY [place] Administration Quinapril HCl 40 mg 06/10/22 10:00 06/10/22 09:26 Quinapril 10mg Tab PO 07/10/22 09:59 40 mg DAILY [place] Administration Simvastatin 40 mg 06/10/22 22:00 Simvastatin 20 Mg Tablet PO 07/10/22 21:59 QHS [place] Intake & Output (Last 24 hours) 06/08/22 06/09/22 06/10/22 06/11/22 11:59 11:59 11:59 11:59 Intake Total 2982 120 Output Total 1850 100 Balance 1132 20 Weight 86 kg Laboratory Results (Last 24 hours) 06/10/22 06/10/22 06/10/22 11:38 11:38 07:45 WBC RBC Hgb Hct MCV MCH MCHC RDW Plt Count MPV Gran % Immature Gran % (Auto) Nucleat RBC Rel Count Eos # (Auto) Immature Gran # (Auto) Absolute Lymphs (auto) Absolute Monos (auto) Absolute Nucleated RBC Lymphocytes % Monocytes % Eosinophils % Basophils % Absolute Granulocytes Basophils # Sodium Potassium Chloride Carbon Dioxide Anion Gap BUN Creatinine Estimated GFR Glucose POC Glucometer 150 H 150 H 81 Calcium Total Bilirubin AST ALT Alkaline Phosphatase NT-Pro-B Natriuret Pep Serum Total Protein Albumin Influenza Type A Ag Influenza Type B Ag RSV (PCR) SARS-CoV-2 (PCR) 06/09/22 06/09/22 06/09/22 20:45 17:19 15:40 WBC RBC Hgb Hct MCV MCH MCHC RDW Plt Count MPV Gran % Immature Gran % (Auto) Nucleat RBC Rel Count Eos # (Auto) Immature Gran # (Auto) Absolute Lymphs (auto) Absolute Monos (auto) Absolute Nucleated RBC Lymphocytes % Monocytes % Eosinophils % Basophils % Absolute Granulocytes Basophils # Sodium 138 Potassium 4.4 Chloride 105 Carbon Dioxide 24 Anion Gap 13.5 BUN 19 H Creatinine 1.20 H Estimated GFR 45.9 Glucose 118 H POC Glucometer 98 71 L Calcium 9.4 Total Bilirubin 0.50 AST 33 ALT 30 Alkaline Phosphatase 95 NT-Pro-B Natriuret Pep 727 Serum Total Protein 7.0 Albumin 4.4 Influenza Type A Ag Influenza Type B Ag RSV (PCR) SARS-CoV-2 (PCR) 06/09/22 06/09/22 15:40 15:01 WBC 6.7 RBC 4.84 Hgb 13.7 Hct 41.6 MCV 86.0 MCH 28.3 MCHC 32.9 RDW 13.7 Plt Count 213 MPV 11.5 H Gran % 62.5 Immature Gran % (Auto) 0.0 Nucleat RBC Rel Count 0.0 Eos # (Auto) 0.15 Immature Gran # (Auto) 0.00 Absolute Lymphs (auto) 1.72 Absolute Monos (auto) 0.60 Absolute Nucleated RBC 0.00 Lymphocytes % 25.7 Monocytes % 9.0 Eosinophils % 2.2 Basophils % 0.6 Absolute Granulocytes 4.18 Basophils # 0.04 Sodium Potassium Chloride Carbon Dioxide Anion Gap BUN Creatinine Estimated GFR Glucose POC Glucometer Calcium Total Bilirubin AST ALT Alkaline Phosphatase NT-Pro-B Natriuret Pep Serum Total Protein Albumin Influenza Type A Ag NEGATIVE Influenza Type B Ag NEGATIVE RSV (PCR) NEGATIVE SARS-CoV-2 (PCR) NEGATIVE Orders (Last 24 hours) Category Date Time Status Up Ad Vivi TOLERATED Activity 06/09/22 15:45 Active Miscellaneous Nursing Order ROUTINE Care 06/09/22 15:40 Active Orthostatic Vital Signs Q4HWA Care 06/09/22 20:00 Active POCT Glucose Check ACHS Care 06/09/22 21:[address] in Observation ROUTINE Care 06/09/22 15:40 Active Heart-Healthy Diet Diet 06/09/22 Dinner Active Nutritional Admission Screen ONCE Diet 06/09/22 15:51 Active CHEST 2 VIEWS (PA AND LAT) Stat Exams 06/09/22 16:01 Completed CBC W DIFF Stat Lab 06/09/22 15:40 Completed CMP Stat Lab 06/09/22 15:40 Completed COVID/FLU/RSV Panel Routine Lab 06/09/22 15:01 Completed NT PRO BNP Stat Lab 06/09/22 15:40 Completed POCT GLUCOSE Stat Lab 06/09/22 17:19 Completed POCT GLUCOSE Stat Lab 06/09/22 20:45 Completed POCT GLUCOSE Stat Lab 06/10/22 07:45 Completed POCT GLUCOSE Stat Lab 06/10/22 11:38 Completed POCT GLUCOSE Stat Lab 06/10/22 11:38 Completed Cholecalciferol (Vitamin D3) [Vitamin D] Med 06/16/22 10:00 Active 1,250 unit PO WEEKLY Clopidogrel Bisulfate [PLAVIX Tablet] Med 06/10/22 10:00 Active 75 mg PO DAILY HydrALAzine HCL 25 MG TAB [Apresoline 25 MG TABLET Med 06/10/22 10:00 Active *] 50 mg PO BID Medication Intervention Med 06/10/22 10:00 Active See Dose Instructions MC .RN TO CHECK WITH PATIENT Medication Intervention Med 06/10/22 10:00 Active See Dose Instructions MC .RN TO CHECK WITH PT Metoprolol Tartrate 25 mg [Lopressor 25MG Tab] Med 06/10/22 10:00 Active 25 mg PO BID NaCl 0.9% 1000 ml [Sodium Chloride 0.9% 1000 ML] 1,000 Med 06/09/22 15:45 Active ml IV 100 mls/hr PANTOPRAZOLE 40 mg Tablet [Protonix 40MG Tablet] Med 06/10/22 10:00 Active 40 mg PO DAILY Quinapril HCl 10 mg [Accupril 10MG Tablet] Med 06/10/22 10:00 Active 40 mg PO DAILY Simvastatin 20Mg [Zocor 20Mg] Med 06/10/22 22:00 Active 40 mg PO QHS EKG [id number] RT 06/09/22 15:40 Completed EKG ROUTINE RT 06/09/22 17:45 Completed EKG ROUTINE RT 06/10/22 05:00 Completed Code(s): I95.1 - ORTHOSTATIC HYPOTENSION (2) Hypotension due to drugs Current Visit: Yes Status: Acute
[2022-06-10] MEDS ORDERED: ZOCOR 20MG PO SCH (22:00)
[2022-06-10] MEDS ORDERED: LIPITOR 40MG PO SCH (22:00)
[2022-06-11 07:08] VITALS: O2SAT 98
--- NOTE | 2022-06-11 07:21 | PCM.DS ---
Discharge Summary Date of Admission: 06/09/22 14:47 Admitting Physician: ELVIS SALINAS Primary Care Provider: ELVIS SALINAS Allergies Allergies aspirin Adverse Reaction (Intermediate, Verified 06/09/22 15:05) Stomach Pain Hurts Stomach adhesive tape Adverse Reaction (Mild, Verified 08/23/20 09:22) Hospital Summary - Hospital Course Hospital Course: Chief Complaint Diagnosis dizziness, low blood pressure for 1-2 days Allergies Allergy/AdvReac Type Severity Reaction Status Date / Time aspirin AdvReac Intermediate Stomach Verified 06/09/22 15:05 Pain adhesive tape AdvReac Mild Verified 08/23/20 09:22 Vital Signs (Last 24 hours) Temp Pulse Resp BP Pulse Ox 06/11/22 07:06 97.9 F 61 16 183/73 98 06/11/22 04:00 97.3 F 64 16 143/94 96 06/10/22 23:58 97.1 F 66 17 166/69 95 06/10/22 19:47 97.1 F 73 16 112/55 97 06/10/22 16:49 162/69 06/10/22 16:30 175/80 06/10/22 16:00 97.7 F 69 21 161/81 99 06/10/22 12:00 97.5 F 77 19 161/77 96 06/10/22 08:00 97.5 F 68 21 163/70 96 Home Medications Medication Instructions Recorded Confirmed Last Taken Type Cholecalciferol (Vitamin D3) 1,250 mcg PO WEEKLY 06/09/22 06/09/22 06/09/22 History [Vitamin D3] Dulaglutide [Trulicity] 1.5 mg SQ WEEKLY 06/09/22 06/09/22 06/06/22 History 1.5mg/0.5mL Hydralazine HCl 50 mg PO BID 06/09/22 06/09/22 06/09/22 History 50 mg PANTOPRAZOLE 40 mg Tablet 40 mg PO DAILY 06/09/22 06/09/22 06/09/22 History [Protonix 40MG Tablet] 40 mg Current Medications Generic Name Dose Route Start Last Admin Trade Name Freq PRN Reason Stop Dose Admin Cholecalciferol 1,250 unit 06/16/22 10:00 Cholecalciferol (Vitamin D3) 1000 Unit Tablet PO 07/16/22 09:59 WEEKLY [place] Clopidogrel Bisulfate 75 mg 06/10/22 10:00 06/10/22 09:24 Clopidogrel Bisulfate 75 Mg Tablet PO 07/10/22 09:59 75 mg DAILY [place] Administration Hydralazine HCl 50 mg 06/10/22 10:00 06/10/22 23:40 Hydralazine Hcl 25 Mg Tablet PO 07/10/22 09:59 50 mg BID [place] Administration Sodium Chloride 1,000 mls @ 100 mls/hr 06/09/22 15:45 06/10/22 02:26 Sodium Chloride 0.9% 1000 Ml IV 07/09/22 15:44 100 mls/hr .Q10H [place] Administration Metoprolol Tartrate 25 mg 06/10/22 10:00 06/10/22 21:52 Metoprolol Tartrate 25 Mg Tab PO 07/10/22 09:59 25 mg BID [place] Administration Miscellaneous Information 0 each 06/10/22 10:00 Medication Intervention 1 Each Each MC 07/10/22 09:59 .RN TO CHECK WITH PT [place] Miscellaneous Information 0 each 06/10/22 10:00 Medication Intervention 1 Each Each MC 07/10/22 09:59 .RN TO CHECK WITH PATIENT [place] Pantoprazole Sodium 40 mg 06/10/22 10:00 06/10/22 09:25 Protonix (Pantoprazole) 40 Mg Tablet PO 07/10/22 09:59 40 mg DAILY [place] Administration Quinapril HCl 40 mg 06/10/22 10:00 06/10/22 09:26 Quinapril 10mg Tab PO 07/10/22 09:59 40 mg DAILY [place] Administration Simvastatin 40 mg 06/10/22 22:00 06/10/22 21:52 Simvastatin 20 Mg Tablet PO 07/10/22 21:59 40 mg QHS [place] Administration Intake & Output (Last 24 hours) 06/08/22 06/09/22 06/10/22 06/11/22 11:59 11:59 11:59 11:59 Intake Total 2982 980 Output Total 1850 100 Balance 1132 880 Weight 86 kg Laboratory Results (Last 24 hours) 06/10/22 06/10/22 06/10/22 20:34 16:01 11:38 POC Glucometer 197 H 146 H 150 H 09/03/22 09/03/22 11:38 07:45 POC Glucometer 150 H 81 Orders (Last 24 hours) Category Date Time Status POCT GLUCOSE Stat Lab 06/10/22 07:45 Completed POCT GLUCOSE Stat Lab 06/10/22 11:38 Completed POCT GLUCOSE Stat Lab 06/10/22 11:38 Completed POCT GLUCOSE Stat Lab 06/10/22 16:01 Completed POCT GLUCOSE Stat Lab 06/10/22 20:34 Completed Cholecalciferol (Vitamin D3) [Vitamin D] Med 06/16/22 10:00 Active 1,250 unit PO WEEKLY Clopidogrel Bisulfate [PLAVIX Tablet] Med 06/10/22 10:00 Active 75 mg PO DAILY HydrALAzine HCL 25 MG TAB [Apresoline 25 MG TABLET Med 06/10/22 10:00 Active *] 50 mg PO BID Medication Intervention Med 06/10/22 10:00 Active See Dose Instructions MC .RN TO CHECK WITH PATIENT Medication Intervention Med 06/10/22 10:00 Active See Dose Instructions MC .RN TO CHECK WITH PT Metoprolol Tartrate 25 mg [Lopressor 25MG Tab] Med 06/10/22 10:00 Active 25 mg PO BID PANTOPRAZOLE 40 mg Tablet [Protonix 40MG Tablet] Med 06/10/22 10:00 Active 40 mg PO DAILY Quinapril HCl 10 mg [Accupril 10MG Tablet] Med 06/10/22 10:00 Active 40 mg PO DAILY Simvastatin 20Mg [Zocor 20Mg] Med 06/10/22 22:00 Active 40 mg PO QHS - Vitals & Intake/Output Vital Signs: Vital Signs Temperature 97.9 F 06/11/22 07:06 Pulse Rate 61 06/11/22 07:06 Respiratory Rate 16 06/11/22 07:06 Blood Pressure 183/73 06/11/22 07:06 O2 Sat by Pulse Oximetry 98 06/11/22 07:06 Intake & Output: Intake & Output 06/08/22 06/09/22 06/10/22 06/11/22 11:59 11:59 11:59 11:59 Intake Total 2982 980 Output Total 1850 100 Balance 1132 880 Weight 86 kg - Lab Result Diagrams: 06/09/22 15:40 06/09/22 15:40 Lab Results-Last 24 Hrs: Lab Results-Last 24 Hours 06/10/22 06/10/22 06/10/22 Range/Units 07:45 11:38 11:38 POC Glucometer 81 150 H 150 H (74 to 106) mg/dL 06/10/22 06/10/22 Range/Units 16:01 20:34 POC Glucometer 146 H 197 H (74 to 106) mg/dL Micro Results-Entire Visit: Accuchecks Date 06/09/22 Time 21:00 - Radiology Exams Ordered Rad Exams-Entire Visit: Radiology Procedures Category Date Time Status CHEST 2 VIEWS (PA AND LAT) Stat Exams 06/09/22 16:01 Completed - Procedures and Test Procedures and Tests throughout Hospitalization: Therapy Orders & Screens 06/09/22 15:40 EKG [id number] Comment: 06/09/22 17:45 EKG ROUTINE Comment: Diagnosis: hypotension 06/10/22 05:00 EKG ROUTINE Comment: Diagnosis: hypotension Discharge Exam General Appearance: no apparent distress, alert Neurologic Exam: alert, oriented x 3, cooperative, normal mood/affect, nml cerebellar function, sensation nml, No motor deficits Eye Exam: PERRL, EOMI, eyes nml inspection Ears, Nose, Throat Exam: normal ENT inspection, pharynx normal, moist mucous membranes Neck Exam: normal inspection, non-tender, supple, full range of motion Respiratory Exam: normal breath sounds, lungs clear, No respiratory distress Cardiovascular Exam: regular rate/rhythm, normal heart sounds Gastrointestinal/Abdomen Exam: soft, No tenderness, No mass Pelvic Exam: deferred Rectal Exam: deferred Back Exam: normal inspection, normal range of motion, No CVA tenderness, No vertebral tenderness Extremity Exam: normal inspection, normal range of motion Skin Exam: normal color, warm, dry Final Diagnosis/Problem List - Final Discharge Diagnosis/Problem (1) Sympathotonic orthostatic hypotension Current Visit: Yes Status: Resolved Assessment & Plan: Chief Complaint Diagnosis dizziness, low blood pressure for 1-2 days Allergies Allergy/AdvReac Type Severity Reaction Status Date / Time aspirin AdvReac Intermediate Stomach Verified 06/09/22 15:05 Pain adhesive tape AdvReac Mild Verified 08/23/20 09:22 Vital Signs (Last 24 hours) Temp Pulse Resp BP Pulse Ox 06/11/22 07:06 97.9 F 61 16 183/73 98 06/11/22 04:00 97.3 F 64 16 143/94 96 06/10/22 23:58 97.1 F 66 17 166/69 95 06/10/22 19:47 97.1 F 73 16 112/55 97 06/10/22 16:49 162/69 06/10/22 16:30 175/80 06/10/22 16:00 97.7 F 69 21 161/81 99 06/10/22 12:00 97.5 F 77 19 161/77 96 06/10/22 08:00 97.5 F 68 21 163/70 96 Home Medications Medication Instructions Recorded Confirmed Last Taken Type Cholecalciferol (Vitamin D3) 1,250 mcg PO WEEKLY 06/09/22 06/09/22 06/09/22 History [Vitamin D3] Dulaglutide [Trulicity] 1.5 mg SQ WEEKLY 06/09/22 06/09/22 06/06/22 History 1.5mg/0.5mL Hydralazine HCl 50 mg PO BID 06/09/22 06/09/22 06/09/22 History 50 mg PANTOPRAZOLE 40 mg Tablet 40 mg PO DAILY 06/09/22 06/09/22 06/09/22 History [Protonix 40MG Tablet] 40 mg Current Medications Generic Name Dose Route Start Last Admin Trade Name Jayson PRN Reason Stop Dose Admin Cholecalciferol 1,250 unit 06/16/22 10:00 Cholecalciferol (Vitamin D3) 1000 Unit Tablet PO 07/16/22 09:59 WEEKLY [place] Clopidogrel Bisulfate 75 mg 06/10/22 10:00 06/10/22 09:24 Clopidogrel Bisulfate 75 Mg Tablet PO 07/10/22 09:59 75 mg DAILY [place] Administration Hydralazine HCl 50 mg 06/10/22 10:00 06/10/22 23:40 Hydralazine Hcl 25 Mg Tablet PO 07/10/22 09:59 50 mg BID [place] Administration Sodium Chloride 1,000 mls @ 100 mls/hr 06/09/22 15:45 06/10/22 02:26 Sodium Chloride 0.9% 1000 Ml IV 07/09/22 15:44 100 mls/hr .Q10H [place] Administration Metoprolol Tartrate 25 mg 06/10/22 10:00 06/10/22 21:52 Metoprolol Tartrate 25 Mg Tab PO 07/10/22 09:59 25 mg BID [place] Administration Miscellaneous Information 0 each 06/10/22 10:00 Medication Intervention 1 Each Each 07/10/22 09:59 .RN TO CHECK WITH PT [place] Miscellaneous Information 0 each 06/10/22 10:00 Medication Intervention 1 Each Each 07/10/22 09:59 .RN TO CHECK WITH PATIENT [place] Pantoprazole Sodium 40 mg 06/10/22 10:00 06/10/22 09:25 Protonix (Pantoprazole) 40 Mg Tablet PO 07/10/22 09:59 40 mg DAILY [place] Administration Quinapril HCl 40 mg 06/10/22 10:00 06/10/22 09:26 Quinapril 10mg Tab PO 07/10/22 09:59 40 mg DAILY [place] Administration Simvastatin 40 mg 06/10/22 22:00 06/10/22 21:52 Simvastatin 20 Mg Tablet PO 07/10/22 21:59 40 mg QHS [place] Administration Intake & Output (Last 24 hours) 06/08/22 06/09/22 06/10/22 06/11/22 11:59 11:59 11:59 11:59 Intake Total 2982 980 Output Total 1850 100 Balance 1132 880 Weight 86 kg Laboratory Results (Last 24 hours) 06/10/22 06/10/22 06/10/22 20:34 16:01 11:38 POC Glucometer 197 H 146 H 150 H 06/10/22 06/10/22 11:38 07:45 POC Glucometer 150 H 81 Orders (Last 24 hours) Category Date Time Status POCT GLUCOSE Stat Lab 06/10/22 07:45 Completed POCT GLUCOSE Stat Lab 06/10/22 11:38 Completed POCT GLUCOSE Stat Lab 06/10/22 11:38 Completed POCT GLUCOSE Stat Lab 06/10/22 16:01 Completed POCT GLUCOSE Stat Lab 06/10/22 20:34 Completed Cholecalciferol (Vitamin D3) [Vitamin D] Med 06/16/22 10:00 Active 1,250 unit PO WEEKLY Clopidogrel Bisulfate [PLAVIX Tablet] Med 06/10/22 10:00 Active 75 mg PO DAILY HydrALAzine HCL 25 MG TAB [Apresoline 25 MG TABLET Med 06/10/22 10:00 Active *] 50 mg PO BID Medication Intervention Med 06/10/22 10:00 Active See Dose Instructions MC .RN TO CHECK WITH PATIENT Medication Intervention Med 06/10/22 10:00 Active See Dose Instructions [facility] [place] TO CHECK WITH PT Metoprolol Tartrate 25 mg [Lopressor 25MG Tab] Med 06/10/22 10:00 Active 25 mg PO BID PANTOPRAZOLE 40 mg Tablet [Protonix 40MG Tablet] Med 06/10/22 10:00 Active 40 mg PO DAILY Quinapril HCl 10 mg [Accupril 10MG Tablet] Med 06/10/22 10:00 Active 40 mg PO DAILY Simvastatin 20Mg [Zocor 20Mg] Med 06/10/22 22:00 Active 40 mg PO QHS Code(s): I95.1 - ORTHOSTATIC HYPOTENSION (2) Hypotension due to drugs Current Visit: Yes Status: Resolved (3) Hypertension Current Visit: Yes Status: Chronic Code(s): I10 - ESSENTIAL (PRIMARY) HYPERTENSION (4) Type 2 diabetes mellitus Current Visit: Yes Status: Chronic (5) Hx of colon cancer, stage II Current Visit: Yes Status: Chronic Code(s): Z85.038 - PERSONAL HISTORY OF MALIGNANT NEOPLASM OF LARGE INTESTINE - Discharge Discharge Date: 06/11/22 Disposition: Home, Self-Care Condition: Stable Prescriptions: Continue Semaglutide [Rybelsus] 7 mg PO DAILY Quinapril HCl [Accupril] 40 mg PO DAILY Metoprolol Tartrate 25 mg [Lopressor 25MG Tab] 25 mg PO BID Atorvastatin Calcium [Lipitor] 40 mg PO QHS Clopidogrel Bisulfate [PLAVIX Tablet] 75 mg PO DAILY #0 Cholecalciferol (Vitamin D3) [Vitamin D3] 1,250 mcg PO WEEKLY PANTOPRAZOLE 40 mg Tablet [Protonix 40MG Tablet] 40 mg PO DAILY Dulaglutide [Trulicity] 1.5 mg SQ WEEKLY Changed Hydralazine HCl 50 mg PO TID #0 Instructions: Orthostatic Hypotension (DC) Follow up with: ELVIS SALINAS MD [Primary Care Provider] - 7 Days
[2022-06-11] MEDS: Accupril 10MG Tablet PO SCH (09:13)
[2022-06-11] MEDS: Apresoline 25 MG TABLET PO SCH (09:13)
[2022-06-11] MEDS: PLAVIX Tablet PO SCH (09:13)
[2022-06-11] MEDS: Lopressor 25MG Tab PO SCH (09:13)
[2022-06-11] MEDS: Protonix 40MG Tablet PO SCH (09:13)
[2022-06-11 11:19] VITALS: BP 128/60; PULSE 75
[2022-06-16] MEDS ORDERED: VITAMIN D PO SCH (10:00)
== END 2022-06-11 11:45 | disposition home or self-care (01) ==
LOC: MED SURG 14:47
PROVIDERS: ADMIT General Practice; ATTEND General Practice
DX: I95.1 Orthostatic hypotension (principal); I10 Essential (primary) hypertension; E11.9 Type 2 diabetes mellitus without complications; I25.10 Atherosclerotic heart disease of native coronary artery without angina pectoris; Z79.899 Other long term (current) drug therapy; Z20.828 Contact with and (suspected) exposure to other viral communicable diseases; Z85.038 Personal history of other malignant neoplasm of large intestine
CPT/HCPCS: 0241U; 36415; 71046; 80053; 82947; 83880; 85025; 93005; G0378; A9270-GY